=== PATIENT | female | born 1975 | race Caucasian/White ===

== ENCOUNTER 2017-02-06 12:52 | Day surgery (SDC) | payer OTHER ==
[~2017-02-06] VITALS: Ht 165.1 cm; Wt 104.8 kg
[2017-02-06] VITALS (8 sets, daily range): BP systolic 119–131; BP diastolic 44–103; PULSE 63–78; RESP 12–16; O2SAT 95–99
[~2017-02-06 12:52] MED LIST: BACL10TA PO; CARB100T6 PO; HYDR-4003 PO; MAGN250T37 PO; METR59LO TOP; PANT40TA3 PO; PREG75CA PO; SERT25TA2 PO
[2017-02-06] MEDS ORDERED: fentaNYL-PF 50 mCg/mL 2 mL Inj ONE ×2 (12:53→13:53)
[2017-02-06] MEDS ORDERED: Propofol 10,000 mCg/mL 20 mL Inj ONE (12:53)
[2017-02-06] MEDS ORDERED: Ondansetron 2 mg/mL 2 mL Inj ONE (12:53)
[2017-02-06] MEDS ORDERED: Dexamethasone 4 mg/mL Inj ONE (12:53)
[2017-02-06] MEDS ORDERED: Succinylcholine Chloride 20 mg/mL 5 mL Inj ONE (12:53)
[2017-02-06] MEDS: Lactated Ringer's 1,000 ML IV SCH ×2 (13:22→15:21)
[2017-02-06] MEDS: fentaNYL-PF 50 mCg/mL 2 mL Inj IVPUSH PRN ×3 (13:54→16:39)
[2017-02-06] MEDS ORDERED: Lactated Ringer's 1,000 ML IV ONE (13:54)
[2017-02-06] MEDS: HYDROmorphone 0.5 mg/0.5 mL iSecure Syringe IVPUSH PRN ×3 (14:12→16:53)
[2017-02-06] MEDS ORDERED: Lactated Ringer's 500 ML IV PRN (15:02)
[2017-02-06] MEDS ORDERED: Lactated Ringer's 1,000 ML IV SCH (15:02)
--- NOTE | 2017-02-06 15:02 | PCM.HPANE ---
Patient Data Date of Service: February 06, 2017 (1500) Surgeon Admitting Provider: Attending Provider:Deidre Sykes MD Primary Care Physician:Saida Alston MD Other Provider:Eulogio Euceda Anesthesia Reason for Visit Abnormal Uterine Bleeding, Uterine Fibroid Ht/WT & BMI Height (Feet): 5 Height (Inches): 5 Weight (Kilograms): 104.8 Body Mass Index 38.00 Allergies Coded Allergies: No Known Allergies (Verified , 02/06/17) Past Anesthesia History Anesthesia History: Denies:: Abnormal Airway, Anesthesia Reactions, Difficult Intubation, Fam Anesthesia Reaction, Fam Malignant Hypertherm, Malignant Hyperthermia Diabetes History Hx Diabetes?: No MRSA MRSA: No Medications Hypertension Medication: No Home Meds Incl Beta Jose: No Reported Medications Sertraline HCl (Zoloft)25 Mg Lftbrc06 Mg PO DAILY 30 Days Ref 0 02/03/[address] 40 Mg Tablet.dr40 Mg PO BID Ref 0 02/03/17 Metronidazole (Metronidazole Lotion)59 Ml Lotion1 Applic TOP BID #59 ML Ref 0 02/03/17 Magnesium Oxide 250 Mg Numpdz616 Mg PO DAILY 02/03/17 Pregabalin (Lyrica)75 Mg Sjbnubd39 Mg PO BID 30 Days Ref 0 02/03/17 Hydrocodone-Acetaminophen 5-325 mg 1 Each Tablet1 Tablet PO Q6H PRN For Pain Ref 0 02/03/17 Carbamazepine Chew 100 Mg Ktbx314 Mg PO QPM 02/03/17 Carbamazepine Chew 100 Mg Xvvz811 Mg PO QAM 02/03/17 Baclofen 10 Mg Gmhnjr27 Mg PO TID Ref 0 02/03/17 Discontinued Reported Medications Temazepam 7.5 Mg CapsuleUnknown Dose PO HS PRN For Insomnia 30 Days Ref 0 02/06/15 Magnesium 250 Mg Zjxrlo313 Mg PO DAILY 02/03/15 Fluoxetine (Prozac)20 Mg Cap40 Mg PO DAILY 30 Days Ref 0 02/03/[address] 20 Mg Tablet.dr20 Mg PO HS 30 Days Ref 0 02/03/15 Carbamazepine Chew 100 Mg Tab.safr229 Mg PO BID 02/03/[address] 40 Mg Tablet.dr40 Mg PO DAILY 30 Days Ref 0 04/22/14 Gabapentin 600 Mg Qmygbi504 Mg PO TID 30 Days Ref 0 04/22/14 Amitriptyline 25 Mg Tab10 Mg PO TID Ref 0 04/22/14 History History of ENT Problems?: No HEENT History: Denies:: Abnormal Airway Cataracts Difficult Intubation Dysphagia Glaucoma Hearing Problem Denture Type: None Teeth Condition: Within Normal Limits Hx of Heart Problems?: No Cardiovascular History: Denies:: AICD Abdominal Aortic Aneurism Atrial Fibrillation Chest Pain Heart Murmur Hypertension Irregular Heartbeat Pacemaker Peripheral Vascular Valvular Heart Disease Hx of Respiratory Problem?: Yes Respiratory History: Positive for:: Use of C-PAP Machine Denies:: Asthma COPD Cough Hemoptysis Oxygen Administration Pneumonia Tuberculosis Hx Neurologic Problems?: Yes Neurological History: Positive for:: Headaches (headaches daily, migraine weekly related to neck) Denies:: CVA Dementia Dizziness Multiple Sclerosis Parkinson's Disease Seizures Hx of GI Problems?: Yes Gastrointestinal History: Positive for:: Gastroesphageal Reflux Heartburn Hiatal Hernia Hx of Problems?: No Genitourinary History: Denies:: Kidney Stones Urinary Tract Infection Female Hx: Positive for:: Problems with Breasts? (benign lump right recently ) Denies:: Currently (TUBAL ) Skin History: Denies:: History Skin Disorders? Pressure Ulcers Hx Musculoskeletal Problems?: Yes Musculoskeletal History: Positive for:: Back Injury (cervical neck stenosis - hx guerline back and neck) Fibromyalgia Musculoskeletal Trauma (hx of knee injections) Osteoarthritis Denies:: Joint Replacement Psycho Social History: Positive for:: Anxiety Hx Depression Hx Surgeries?: Yes (tubal, ) Hx Any Other Health Problems?: Yes Other History: Denies:: Cancer Thyroid Disease History Blood Transfusions: Positive for:: Accept Blood Products? Denies:: Blood Transfusions Hx Diabetes: No Hx Alcohol Use: NoHx Substance Use: No Smoking Status: Never Smoker Have You Smoked inLast 12 mo: No Stop/Bang Treated for Sleep Apnea?: Yes Do You Have a CPAP Machine?: Yes S-Snoring: Do You Snore Loudly: Yes P-Blood Pressure: treated: No B- Body Mass Index > 35 kg/m2: Yes A- Age over 50: No N- Neck Large Circumference: No G- Gender Male: No Risk Assessment Category Category 1A: Patient has history of documented sleep apnea, and HAS NOT received any narcotic, sedative or anesthesia administration during this stay. Category 1B: Patient has history of documented sleep apnea, and HAS received any narcotic , sedative or anesthesia administration during this stay Category 2: Patient has SUSPECTED Obstructive Sleep Apnea, and HAS received any narcotic , sedative or anesthesia administration during this stay. Category 3: Patient has SUSPECTED Obstructive Sleep Apnea and HAS NOT received narcotic, sedative or anesthesia administration during this stay. Category 4: Outpatient in Procedural Areas with known sleep apnea or who screen positive for High Risk via the STOP/BANG questionnaire. Exam Exam Vital Signs Vital Signs Date Time Temp Pulse Resp B/P Pulse Ox O2 Delivery O2 Flow Rate FiO2 02/06/17 13:26 CPAP/BIPAP 02/06/17 13:19 36.7 67 12 121/44 97 Room Air General Appearance: Alert, Oriented X3 HEENT/AIRWAY: MP 1 Lungs: Clear to Auscultation Heart: Exam Unremarkable Meds/Labs/Diagnostics Admission Meds Current Medications Lactated Ringer's (Lr) 1,000 ml @ 120 mls/hr Q8H20M IV Last administered on t 13:22; Start 02/06/17 at 05:00; Stop 02/06/17 at 13:38; Status DC Plan Impression Patient chart reviewed, patient interviewed and anesthestic plan with risks, benefits, and alternatives discussed, and informed consent obtained. NPO per Anesth. Guidelines: Yes ASA Physical Status: ASA2 Mod Systemic Disease Anesthetic Plan: GA Bene/Risks/Altern/Consents: Yes HP Complete Prior to Induction: Yes Geovani Thapa MD February 06, 2017 15:02
[2017-02-06] MEDS ORDERED: MetoCLOpramide 5 mg/mL 2 mL Inj IVPUSH PRN (15:05)
[2017-02-06] MEDS ORDERED: Dexamethasone 4 mg/mL Inj IVPUSH PRN (15:05)
[2017-02-06] MEDS ORDERED: HYDROmorphone 1 mg/mL Inj IVPUSH PRN (15:05)
[2017-02-06] MEDS ORDERED: Phenylephrine 10,000 mCg/mL Inj IVPUSH PRN (15:05)
[2017-02-06] MEDS ORDERED: fentaNYL-PF 50 mCg/mL 2 mL Inj IVPUSH PRN (15:05)
[2017-02-06] MEDS ORDERED: Ondansetron 2 mg/mL 2 mL Inj IVPUSH PRN (15:05)
[2017-02-06] MEDS ORDERED: EPHEDrine Sulfate 50 mg/mL Inj IVPUSH PRN (15:05)
--- NOTE | 2017-02-06 16:32 | PCM.ANEP1 ---
Post Anesthesia PACU Phase 1 Assessment Vital Signs 36.9, 72, 16, 125/60, 98% Vital Signs Date Time Temp Pulse Resp B/P Pulse Ox O2 Delivery O2 Flow Rate FiO2 02/06/17 13:26 CPAP/BIPAP 02/06/17 13:19 36.7 67 12 121/44 97 Room Air Anesthetic Administered: GA Level of Alertness: Awake, talking WALKER's with Equal Strength: Yes Pain: No Nausea or Vomiting: No CV Function and Hydration: Yes Airway Device: Oralpharangeal Airway Oxygen Delivery: Simple Mask Lungs: Clear to Auscultation Dermatome Level: Full Sensation Summary uneventful geta PACU Phase 2 Assessment Complications: No Follow up Care: No Patient Instructions Provided: N/A Geovani Thapa MD February 06, 2017 16:32
[2017-02-06] MEDS ORDERED: oxyCODONE-Acetamin 5-325 mg Tablet PO ONE (16:40)
--- NOTE | 2017-02-06 16:55 | PCM.DIOB ---
Obstetrical Disch Instruction Date of Service: February 06, 2017 Dates of Hospitalization Date of Hospital Admission Out Patient Day Surgery Providers Admitting Physician: Primary Care Physician: Saida Alston MD Attending Physician: Deidre Sykes MD Discharge Diagnosis Discharge Diagnosis Abnormal Uterine bleeding Uterine fibroid Post Operative diagnosis Abnormal Uterine bleeding Uterine fibroid Problems: Diet Discharge Diet: No restrictions Activity Discharge Activity-General: Activity as energy allows, No lifting >10 pounds for 4-6 weeks, Other (Pelvi crest no sex , no douching nor tampons for 3 weeks. ) Dressing and Incisional Care Hygiene: May shower, NO bathtub, hot tub or whirlpool Follow Up Plan Follow-up Provider (F9): Deidre Sykes MD Follow-up appointment: Weeks (2) Call your provider for: Fever or Chills, Shortness of breath, Heavy vaginal bleeding, Heavy bleeding, Epigastric pain, Excessive constipation, Vaginal discomfort, Red painful breasts Deidre Sykes MD February 06, 2017 16:55
--- NOTE | 2017-02-07 11:19 | OP ---
[address] [address] OPERATIVE REPORT PATIENT: KIMBERLY BEARD : 1975 MR#: [id number] ADMIT: 02/06/2017 JOB ID: [id number] DATE OF SURGERY: 02/06/2017 PREOPERATIVE DIAGNOSIS(ES): 1. Abnormal uterine bleeding. 2. Uterine fibroids. POSTOPERATIVE DIAGNOSIS(ES): 1. Abnormal uterine bleeding. 2. Submucosal uterine fibroids. PROCEDURE: 1. Hysteroscopy. 2. Dilatation and curettage. 3. MyoSure resection of submucosal uterine fibroids. COMPLICATIONS: None. ANESTHESIA: General. ESTIMATED BLOOD LOSS: 50 mL. INTRAVENOUS FLUIDS: 800 mL. URINE OUTPUT: Bladder was not drained. IMPLANTS: None. SPECIMENS: Endocervical curetting, endometrial curetting, submucosal uterine fibroids. SURGEON: Deidre Sykes MD. OPERATION: Diana Fair MD. FINDINGS: Exam under anesthesia revealed a mildly enlarged uterus, approximately 9-10 weeks in size. Uterus was anteverted, anteflexed, mobile. Adnexa were not palpable. There were no palpable adnexal masses. Exam was limited by body habitus. There was moderate descent of the uterus, less than half the length of the vagina. Hysteroscopic findings, three small uterine submucosal fibroids. Largest was at the posterior wall of the uterine cavity measuring 1.5 cm and another 0.5 cm fibroid at the anterior wall of the uterine cavity, and a third 0.5 cm fibroid at the right wall of the uterine cavity. Both ostia were visualized. Otherwise, normal uterine cavity. All three fibroids were resected. Normal shape and cavity of the uterine cavity at the end of the procedure. DESCRIPTION OF PROCEDURE: After informed consent was obtained, the patient was taken to the operation room. She was placed under general anesthesia. Then, she was placed in the dorsal lithotomy position. She was prepped and draped in usual sterile fashion for pelvic procedure. A weighted speculum was placed in the posterior vaginal vault. Anterior retractor was used with good visualization of the cervix. Anterior lip of the cervix was grasped with single-toothed tenaculum. The cervix was serially dilated to accommodate a 6.25 mm hysteroscope. The cervix noted to be already dilated and accommodating for the hysteroscope that was introduced without difficulty. Findings as mentioned above were noted. The three submucosal uterine fibroids were visualized. Then, the hysteroscope was removed and endocervical curettings were collected and endometrial cavity curettings were collected. Then, the hysteroscope was introduced again, confirming the location and the shape and the size of the fibroids. Decision was made to proceed with MyoSure resection of the fibroids. They were resected with regular size MyoSure device. Images were obtained before and after the fibroid resection. Hysteroscope was removed. Single-toothed tenaculum was removed. Hemostasis was obtained at the site of the tenaculum with Monsel solution. All instruments were removed from the vagina. The sponge, needle and instrument counts were correct x2. Estimated fluid deficit is 200 mL at the end of the procedure. Deidre Meza MD, was present and scrubbed for the entire procedure. IVAN
--- NOTE | 2017-02-07 15:33 | PATH ---
SURGICAL PATHOLOGY Attending Physician:Deidre Sykes CASE STATUS: Signed Out PATIENT NAME: KIMBERLY BEARD PID: [id number] : 1975 DATE COLLECTED:02/06/2017 00:00 SPECIMEN: 1: Endocervix, Curettage 2: Endometrium, Curettage 3: Uterus, Fibroid (separate surgical procedure) CLINICAL HISTORY: UTERINE FIBROID, ABNORMAL UTERINE BLEEDING 1). ENDOCERVICAL CURETTINGS TIF 15:58 2). ENDOMETRIAL CURETTINGS TIF 16:00 3). UTERINE FIBROID TISSUE TIF 16:35 FINAL DIAGNOSIS: 1.ENDOCERVICAL CURETTINGS: ENDOCERVICAL FRAGMENTS AND SQUAMOUS EPITHELIUM, NEGATIVE FOR DYSPLASIA AND MALIGNANCY. 2.ENDOMETRIAL CURETTINGS: BENIGN PROLIFERATIVE ENDOMETRIUM. Negative for hyperplasia, atypia and neoplasia. 3.UTERINE FIBROID TISSUE: FRAGMENTS OF SMOOTH MUSCLE CONSISTENT WITH UTERINE LEIOMYOMA. NO CYTOLOGIC ATYPIA OR INCREASED MITOTIC RATE. FRAGMENTS OF BENIGN ENDOMETRIUM. ICD10 CODED25.9 GROSS DESCRIPTION: The specimen is received in three formalin filled containers labeled with the patient's name. 1). The specimen is sublabeled "endocervical curettings" and consists of an extremely scant aggregate of mucoid material and blood which is filtered and entirely submitted in cassette 1A. 2). The specimen is sublabeled "endometrial curetting" and consists of multiple portions of tissue and clotted blood which aggregate to 3.0 x 2.0 x 0.5 CM. The specimen is entirely submitted in cassettes 2A, 2B, 2C. 3). The specimen is sublabeled "uterine fibroid tissue" and consists of multiple portions of pink-madrigal tissue which aggregate to 2.0 x 1.0 x 0.4 CM. The specimen is entirely submitted in cassette 3A. 02/07/2017 [facility] MICRO DESCRIPTION: See diagnosis. ICD-9 CODES: CPT CODES: 1: 38792 2: 36435 3: 09012 Electronically Signed Out Judy Magana MD [facility] [address], [place] [address] Technical component performed at [facility], [facility] [address], [place], [address]
== END 2017-02-06 23:59 | disposition home or self-care (01) ==
LOC: SAS 12:52
PROVIDERS: ATTEND Obstetrics & Gynecology
PROC: 0UB98ZZ Excision of Uterus, Via Natural or Artificial Opening Endoscopic (ICD-10-PCS; 2017-02-06)
PROC: 0UDB8ZX Extraction of Endometrium, Via Natural or Artificial Opening Endoscopic, Diagnostic (ICD-10-PCS; principal; 2017-02-06 14:45)
DX: D25.0 Submucous leiomyoma of uterus (principal); N93.8 Other specified abnormal uterine and vaginal bleeding; G47.33 Obstructive sleep apnea (adult) (pediatric); F33.1 Major depressive disorder, recurrent, moderate; M79.7 Fibromyalgia
CPT/HCPCS: 58561; 88305; J0330; J1100; J1170; J1885; J2250; J2405; J3010; J7120